=== PATIENT | female | born 1940 | race Caucasian/White ===

== ENCOUNTER 2016-05-17 16:59 | Emergency (ER) | payer MEDICARE ==
[~2016-05-17] VITALS: Ht 162.6 cm; Wt 89.9 kg
[~2016-05-17 16:59] MED LIST: ASP81TEC PO; CRAN200C2 PO; IBUP200T48 PO; LISI10TA PO; OXYC-176 PO; SMV40T PO
[2016-05-17 17:03] VITALS: BP 185/99; PULSE 82; RESP 14; O2SAT 99
[2016-05-17 17:43] VITALS: BP 158/87; PULSE 76; RESP 13; O2SAT 98
[2016-05-17] MEDS ORDERED: CHOL500011 PO (17:50)
--- NOTE | 2016-05-17 17:55 | ED.REPORT ---
HPI-General Illness Date of Service May 17, 2016 ED Provider: Rajat Munoz MD 75 year old female presents to the ER with swelling to bilateral lower extremities that has been present for 2 weeks. She states that the swelling started in her R foot and then became bilateral up to knees. This is worse at night after walking around although she has not been on her feet much due to arthritis and pain in the legs from swelling. She also noticed erythema to bilat shins. Pt denies SOB, orthopnea and CP. Pt drove home from [place] yesterday. She denies any history of CHF or Kidney disease. Has not been seen by PCP, Dr. Madrigal, for this. Nursing Notes Stated Complaint: SWELLING IN LOWER EXTREMITIES Chief Complaint: General Complaint Nursing Notes Reviewed: Yes Allergies: Coded Allergies: No Known Allergies (Verified , 05/17/16) Scheduled Aspirin-Expunged Drug, Do Not Renew! (Aspirin EC-Expunged Drug, Do Not Renew!) 81 Mg Tablet 81 MG PO DAILY Stopped 7 days prior to surgery Cholecalciferol (Vitamin D3) (Vitamin D3) 5,000 Unit Tablet 5,000 UNIT PO DAILY IBUPROFEN-Expunged Drug, Do Not Renew! (IBUPROFEN-Expunged Drug, Do Not Renew!) 200 Mg Tablet 200 MG PO AM Takes 3 tablets (600mg)/Stopped 7 days prior to surgery Lisinopril-Expunged Drug, Do Not Renew! (Lisinopril-Expunged Drug, Do Not Renew! ) 10 Mg Tablet 10 MG PO AM Hold AM of surgery Simvastatin-Expunged Drug, Choose New Med! (Simvastatin-Expunged Drug, Choose New Med!) 40 Mg Tablet 40 MG PO AM Miscellaneous Medications Cranberry Extract (Cranberry) 200 Mg Capsule 200 MG PO General Time Seen by MD: 17:54 Chief Complaint Other (Edema bilat LE) Hx Obtained From: Patient, Spouse Arrived By: Walk-in Sudden in Onset?: No Onset Occurred: More than a week ago... Symptom Duration: Since onset Location: : Leg left: Leg right Quality: Painful Radiation: : Does not radiate Severity: Current: Moderate Associated with: Denies: Chest pain, Shortness of breath Past Medical History Past Medical History Arthritis Reports: Hyperlipidemia, Hypertension, Denies: Congestive heart failure, Coronary artery disease Denies: Renal insufficiency Past Surgical History History of bilateral varicose vein stripping in 2003, bladder sling in 2003, sinus surgery, and a bunionectomy. Smoking History Never Smoker Review of Systems Full Review of Systems Constitutional: Denies: Chills, Fatigue, Fever Respiratory: Denies: Non-productive cough, Shortness of breath Cardiovascular: Reports: Edema, Denies: Chest pain, Orthopnea GI: Denies: Abdominal pain, Nausea, Vomiting Musculoskeletal: Reports: Extremity pain, Extremity swelling Complete sys rev & neg: except as marked. Physical Exam Vital Signs Vital Signs Date Time Temp Pulse Resp B/P Pulse Ox O2 Delivery O2 Flow Rate FiO2 05/17/16 18:00 81 17 148/57 98 Room Air 05/17/16 17:43 76 13 158/87 98 Room Air 05/17/16 17:03 36.9 82 14 185/99 99 Room Air Initial VS: Reviewed General/Constitutional: Well-developed, Well-nourished Head / Eyes: Atraumatic, Normocephalic, PERRL ENT: Mucous membranes moist, Conjunctiva normal, No scleral icterus Neck: Full range of motion Skin: Warm, Dry, No cyanosis Neurologic: Alert, Oriented, Nonfocal Psychiatric: Mood/affect normal, Behavior normal, Normal thought content Respiratory / Chest: Breath sounds NL, Breath sounds = bilat, No respiratory distress, No rales, No rhonchi, No wheezing Cardiovascular: Heart rate NL, Regular rhythm, Heart sounds NL, No gallop, No murmurs, No rubs, Cap refill not delayed, Peripheral circulation NL Abdomen: Soft, Non-tender, No distention Lower Extremity / Pelvis / MS: Neurologic intact, Vascular intact 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 Good DP pulses. Sensation intact bilat LE. 2+ pitting edema bilat LE extends 3/4 way up knee, symmetric. Stasis dermatitis with erythema to anterior shins bilat. Interpretation & Diagnostics Lab Results Interpretation Result Diagram: 05/17/16 1800 05/17/16 1800 Test 05/17/16 18:00 05/17/16 20:34 White Blood Count 8.7th/mm3 (3.8-10.1) Red Blood Count 3.83mil/mm3 (3.90-5.20) Hemoglobin 12.1g/dL (12.0-15.6) Hematocrit 37.5% (35.0-46.0) Mean Corpuscular Volume 97.9fL (81-100) Mean Corpuscular Hemoglobin 31.6pg (27.0-35.0) Mean Corpuscular Hemoglobin Concent 32.3% (32.0-37.0) Red Cell Distribution Width 12.7% (12.3-15.4) Platelet Count 316bil/L (150-400) Neutrophils (%) (Auto) 61.1% (40-74) Lymphocytes (%) (Auto) 23.6% (14-46) Monocytes (%) (Auto) 9.4% (4-12) Eosinophils (%) (Auto) 5.5% (0-5) Basophils (%) (Auto) 0.2% (0-3) Sodium Level 144mEq/L (134-144) Potassium Level 4.0mEq/L (3.5-5.2) Chloride Level 107mEq/L (97-108) Carbon Dioxide Level 22mmol/L (18-29) Blood Urea Nitrogen 23mg/dL (8-27) Creatinine 1.05mg/dL (0.57-1.00) Estimat Glomerular Filtration Rate 74mL/min (>59) Glucose Level 101mg/dL (60-99) Calcium Level 10.0mg/dL (8.5-10.1) Total Bilirubin 0.4mg/dL (0.0-1.2) Aspartate Amino Transf (AST/SGOT) 17U/L (0-50) Alanine Aminotransferase (ALT/SGPT) 12U/L (0-32) Alkaline Phosphatase 75U/L (25-165) Pro-B-Type Natriuretic Peptide 145.8pg/mL (0-301) Total Protein 6.7g/dL (6.4-8.4) Albumin 4.2g/dL (3.4-5.0) Hold Malhotra Top Tube Received (Received) Hold Urine Received (Received) General Lab Results Interp 1: Labs reviewed ECG Interpretation ECG Interpretation: nsr, rate of 67. LAD, no acute st segment changes no T wave abnormalities Inferior Q waves present No prior for comparison Time: 18:06 Interpreted by: ED physician Normal ECG Interpretation: Normal rate (67), Normal sinus rhythm Re-Eval/Medical Decision Med Decision/Clinical Course In summary, the patient is generally healthy 74-year-old female who presents with several weeks of bilateral lower extremity edema that is painful and forces throughout the day and resolved at night. Acute emergency department she is afebrile with stable vital signs and no apparent distress. Examination reveals symmetric pitting edema of the bilateral lower extremities with associated findings consistent with stasis dermatitis. ECG- nsr, rate of 67. LAD, no acute st segment changes. no T wave abnormalities. Inferior Q waves present. No prior for comparison CBC and CMP unremarkable BNP WNL No significant electrolyte abnormalities Good kidney function Udip unremarkable CXR: Obtained, reviewed and interpreted by myself shows no evidence of infiltrates, effusions or pneumothorax. Cardiac and mediastinal silhouette normal. No bony or soft tissue abnormalities. Overall presentation is consistent with dependent edema. Given the symmetric nature, absence of lateralizing tenderness and absence of any recent major risk factors for development of DVT such as prolonged immobilization, exogenous estrogens or surgery/cancer I find it highly unlikely the patient has a DVT. There is no evidence of overlying cellulitis. I see no evidence of underlying renal dysfunction or liver disease as a cause of her lower extremity edema. She is neurovascularly intact in the lower extremities. She has no symptoms suggestive of congestive heart failure issues without pulmonary edema on chest x -ray. Compression stockings again prescribed and she is advised to elevate her lower extremities. She will follow-up with her primary care physician in the next couple of days with plan for outpatient echocardiogram and further evaluation/management. Prior to discharge follow-up and return precautions were reviewed in detail with the patient who verbalized understanding and agreement with the plan. The patient was discharged in stable condition. Time of Eval: 20:57 Re-Evaluation/Progress Note: Pt left prior to recieving d/c instructions which were verbalized with her. Counseled Regarding: Diagnosis, Lab results, Need for follow-up, When/why to return to ED Discharge & Departure Primary Impression: Dependent edema Additional Impression: Stasis dermatitis of both legs Disposition: Home Discharge Condition All VS Reviewed: Yes Condition: Stable Additional Instructions: Thank you for seeking care at the emergency room. You were seen today for lower extremity swelling. Our primary goal today in the ED was to evaluate you for any life-threatening conditions. Your evaluation was reassuring. I do not see any evidence that you have kidney failure, electrolyte abnormalities or obvious evidence of heart failure. You should follow-up with your primary doctor in the next week. You will likely require additional testing such as an echocardiogram. Please wear compression stockings and elevate your legs for at least 30 minutes 2-3 times a day as discussed. You should return to the ED immediately if you develop worsening swelling/pain, fevers, vomiting, cough, shortness of breath, chest pain, lightheadedness, weakness or any other concerning signs or symptoms. Thank you for letting us partake in your care today. Referrals: Mariela Madrigal MD (PCP) Scribe Attestation Portions of this note were transcribed by Gianna Carvalho. I, (Dr. Rajat Munoz ) personally performed the history, physical exam and medical decision-making; I reviewed and confirmed the accuracy of the information in the transcribed note. Signed by: Gianna Carvalho. Hyacinth, 05/17/2016, 2056 copies to: Mariela Madrigal MD, Beck O MD May 17, 2016 17:55 Gianna Carvalho May 17, 2016 19:08
[2016-05-17 18:00] VITALS: BP 148/57; PULSE 81; RESP 17; O2SAT 98
--- NOTE | 2016-05-17 18:47 | DRSVH ---
PROCEDURE: X-RAY CHEST ONE VIEW, PORTABLE ([id number]) INDICATIONS: swelling in extremities and sob TECHNIQUE: One view of the chest was acquired. COMPARISON: [facility], , CHEST 1 VIEW, 07/25/2013, 10:34. FINDINGS: Surgical changes and devices: None. Lungs and pleura: No pleural effusions or pneumothorax. Lungs are clear. Mediastinum: Mediastinal contours appear normal. Heart size is normal. Bones and chest wall: No suspicious bony lesions. Overlying soft tissues appear unremarkable. IMPRESSION: 1. No acute cardiopulmonary disease. Dictated by: Minor Levine M.D. on 05/17/2016 at 18:42 Approved by: Minor Levine M.D. on 05/17/2016 at 18:45
[2016-05-17 19:10] LABS: BASOPHILS % (AUTO) 0.2 % (0-3); EOSINOPHILS % (AUTO) 5.5 % (0-5); MONOCYTES % (AUTO) 9.4 % (4-12); Mean Corpuscular Hemoglobin 31.6 pg (27.0-35.0); Mean Corpuscular Volume 97.9 fL (81-100); NEUTROPHILS % (AUTO) 61.1 % (40-74); Platelet Count 316 bil/L (150-400)
[2016-05-17 22:11] LABS: APPEARANCE,URINE CLEAR (CLEAR,HAZY); COLOR,URINE YELLOW (YELLOW); OCCULT BLOOD,URINE NEGATIVE (NEGATIVE); UROBILINOGEN,URINE NORMAL (NORMAL)
== END 2016-05-17 20:43 | disposition home or self-care (01) ==
LOC: SED 16:59
DX: R60.9 Edema, unspecified (principal); I87.2 Venous insufficiency (chronic) (peripheral); E78.5 Hyperlipidemia, unspecified; I10 Essential (primary) hypertension; Z79.82 Long term (current) use of aspirin